=== PATIENT | female | born 1935 | race Caucasian/White ===

== ENCOUNTER 2017-04-15 15:56 | Emergency (ER) | payer MEDICARE ==
[2017-04-15 16:34] VITALS: O2SAT 98
[2017-04-15] MEDS ORDERED: Albuterol-Ipratrop 3 mg / 0.5 (3 ml) UD IH STA (17:17)
--- NOTE | 2017-04-15 18:12 | RAD ---
HISTORY: Cough COMPARISON: Chest x-ray portion of abdominal series performed 10/30/12 TECHNIQUE: Chest PA and lateral FINDINGS: LUNGS: Bibasilar atelectasis. Please note that chest x-ray has limited sensitivity for the detection of pulmonary masses. PLEURA: Trace bilateral pleural effusions versus pleural thickening. No definite pneumothorax . CARDIOVASCULAR: Heart size appears within normal limits. Ectatic aorta containing atherosclerotic calcifications. OSSEOUS STRUCTURES: Osseous demineralization. Degenerative changes of the spine and shoulders. Acromioclavicular arthropathy. VISUALIZED UPPER ABDOMEN: Unremarkable. OTHER FINDINGS: None. IMPRESSION: Bibasilar atelectasis. Small bilateral pleural effusions versus pleural thickening.
--- NOTE | 2017-04-15 18:20 | C.PDOC ---
Time Seen by Provider: 04/15/17 16:47 Chief Complaint (Nursing): Cough, Cold, Congestion History Per: Patient Onset/Duration Of Symptoms: Days (about 1 week) Current Symptoms Are (Timing): Still Present Associated Symptoms: Cough, Sputum Severity: Moderate Additional History Per: Prior Records Past Medical History Reviewed: Historical Data, Nursing Documentation, Vital Signs Vital Signs: Last Vital Signs Temp 98.8 F 04/15/17 16:27 Pulse 112 H 04/15/17 16:27 Resp 20 04/15/17 16:27 BP 153/87 H 04/15/17 16:27 Pulse Ox 98 04/15/17 16:27 - Medical History PMH: HTN, Rheumatoid Arthritis Other PMH: Asbestos lung disease? Surgical History: Tonsillectomy Family History: States: Unknown Family Hx - Social History Hx Tobacco Use: No Hx Alcohol Use: No Hx Substance Use: No - Immunization History Hx Tetanus Toxoid Vaccination: No Hx Influenza Vaccination: No Hx Pneumococcal Vaccination: No Review Of Systems Except As Marked, All Systems Reviewed And Found Negative. Constitutional: Negative for: Fever, Weakness ENT: Negative for: Throat Pain Cardiovascular: Negative for: Chest Pain Respiratory: Positive for: Cough, Sputum. Negative for: Shortness of Breath, Hemoptysis Gastrointestinal: Negative for: Vomiting, Abdominal Pain Musculoskeletal: Negative for: Neck Pain Skin: Negative for: Rash Neurological: Negative for: Weakness, Numbness, Seizures, Altered Mental Status Physical Exam - Physical Exam Appears: Non-toxic, No Acute Distress Skin: Normal Color, Warm, Dry, No Rash Head: Atraumatic, Normacephalic Eye(s): bilateral: PERRL, EOMI Neck: Normal ROM, Supple Cardiovascular: Rhythm Regular Respiratory: No Accessory Muscle Use, Rhonchi Gastrointestinal/Abdominal: Soft, No Tenderness Back: No CVA Tenderness Extremity: Normal ROM, No Pedal Edema, No Calf Tenderness Neurological/Psych: Oriented x3, Normal Speech, Normal Motor, Normal Sensation ED Course And Treatment O2 Sat by Pulse Oximetry: 98 Pulse Ox Interpretation: Normal - Radiology CXR: Viewed By Me, Read By Radiologist CXR Interpretation: Yes: Other (Bibasilar atelectasis. Small bilateral pleural effusions versus pleural thickening.) Progress - Interventions Interventions:: Observation - Medications Administered Inhaled nebulized: Anticholinergic, Beta-2 agonist - Data Reviewed Data Reviewed: Diagnostic imaging, Old records - Patient Status Patient status: Mostly improved - Continuity of Care Discussed patient case with:: Patient, ED Nurse - Patient Plan Patient Plan: Discharge, F/U with PCP, Continue present meds Disposition Counseled Patient/Family Regarding: Studies Performed, Diagnosis, Need For Followup, Rx Given - Disposition Referrals: Vincenzo Laguerre MD [Medical Doctor] - Disposition: HOME/ ROUTINE Disposition Time: 18:21 Condition: IMPROVED Additional Instructions: Follow up with your doctor for further evaluation and treatment. Return to the ER if you develop shortness of breath, chest pain, fever, worsening of symptoms or if you have any other concerns. Prescriptions: Albuterol HFA [Ventolin HFA 90 mcg/actuation (8 g)] 2 puff IH Q4 PRN #1 unit PRN Reason: Cough And Congestion Azithromycin [Zithromax] 1 dose PO DAILY #1 pkt Instructions: Acute Bronchitis (ED) - Clinical Impression Clinical Impression: Bronchitis
[2017-04-15 18:37] VITALS: BP 150/74; PULSE 96; RESP 16; TEMP 98.3
== END 2017-04-15 18:38 | disposition home or self-care (01) ==
LOC: C.ER 15:56
DX: J40 Bronchitis, not specified as acute or chronic (principal)

== ENCOUNTER 2017-09-05 17:37 | Emergency (ER) | payer MEDICARE ==
[2017-09-05 18:01] VITALS: RESP 18
--- NOTE | 2017-09-05 19:06 | C.PDOC ---
History Of Present Illness 81 y/o F presents with drowsiness tonight. Fire department came to patient's home and found patient drowsy and elevated CO reading on monitor. Patient denies any symptoms currently. Denies vision change, sleepiness, chest pain, dyspnea, numbness, weakness. No fire in home. Time Seen by Provider: 09/05/17 18:02 Chief Complaint (Nursing): Dizziness/Lightheaded Past Medical History Vital Signs: Last Vital Signs Temp 98.6 F 09/05/17 17:54 Pulse 124 H 09/05/17 17:54 Resp 18 09/05/17 17:54 BP 175/109 H 09/05/17 17:54 Pulse Ox 96 09/05/17 19:18 - Medical History PMH: HTN, Rheumatoid Arthritis Surgical History: Tonsillectomy Family History: States: Unknown Family Hx - Social History Hx Tobacco Use: No Hx Alcohol Use: No Hx Substance Use: No - Immunization History Hx Tetanus Toxoid Vaccination: No Hx Influenza Vaccination: No Hx Pneumococcal Vaccination: No Review Of Systems Except As Marked, All Systems Reviewed And Found Negative. Constitutional: Negative for: Fever Cardiovascular: Negative for: Chest Pain Respiratory: Negative for: Shortness of Breath Physical Exam - Physical Exam Additional Physical Exam Comments: Constitutional: No acute distress. Head: Normocephalic. Atraumatic. Eyes: PERRL. ENT: Moist mucous membranes. Neck: Supple. Cardiovascular: Regular rate. Radial pulse 2+ bilaterally. Chest: No tenderness. Respiratory: Clear to auscultation bilaterally. GI: Soft. Nontender. Nondistended. Back: No CVA tenderness. Musculoskeletal: No tenderness or swelling of extremities. Skin: No rash. Neurologic: Alert, no focal deficit. Romberg negative. Finger to nose, heel to pope, and rapid alternating movements normal. Oriented x 3. Cranial nerves II- XII intact. Sensation to light touch intact bilaterally. Motor 5/5 x 4. Gait normal. ED Course And Treatment - Laboratory Results Result Diagrams: 09/05/17 18:57 09/05/17 18:57 O2 Sat by Pulse Oximetry: 96 Medical Decision Making Medical Decision Making: CO level positive. Patient feels well, no symptoms. Vitals normal. Will discharge home. RN called patient's home, confirmed safe to be inhabited. Disposition - Disposition Referrals: Vincenzo Laguerre MD [Medical Doctor] - Disposition: HOME/ ROUTINE Disposition Time: 20:14 Condition: STABLE Instructions: Carbon Monoxide Poisoning (ED) Forms: [employer] ([place]ian) - Clinical Impression Clinical Impression: Carbon monoxide exposure - Scribe Statement The provider has reviewed the documentation as recorded by the Scribe Buck Ta All medical record entries made by the Scribe were at my direction and personally dictated by me. I have reviewed the chart and agree that the record accurately reflects my personal performance of the history, physical exam, medical decision making, and the department course for this patient. I have also personally directed, reviewed, and agree with the discharge instructions and disposition.
[2017-09-05 19:12] LABS: BASO # 0.1 K/uL (0.0-0.2); BASO % 0.5 % (0.0-2.0); EOS # 0.1 K/uL (0.0-0.7); EOS % 0.6 % (0.0-4.0); HEMATOCRIT 37.4 % (34.0-47.0); LYMPH % 19.2 % (20.0-40.0); MEAN CELL VOLUME 80.6 fL (81.0-99.0); MEAN CORPUSCULAR HGB CONC 33.5 g/dL (33.0-37.0); MEAN PLATELET VOLUME 9.3 fL (7.2-11.7); MONO # 0.7 K/uL (0.0-0.8); MONO % 6.6 % (0.0-10.0); RED CELL DISTRIBUTION WIDTH 14.4 % (11.5-14.5); WHITE BLOOD COUNT 10.4 K/uL (4.8-10.8)
[2017-09-05 19:23] LABS: BLOOD GAS HEMOGLOBIN 12.6 g/dL (11.7-17.4); CARBOXYHEMOGLOBIN 3.6 % (0.5-1.5); DRAW SITE VENOUS; HHB 33.5 % (0.0-5.0); METHEMOGLOBIN 0.8 % (0.0-3.0); VENOUS BLOOD GAS BASE EXCESS 1.7 mmol/L (0.0-2.0); VENOUS BLOOD GAS PCO2 42 mmHg (40-60); VENOUS BLOOD PH 7.41 (7.32-7.43)
[2017-09-05 19:25] LABS: CHLORIDE 98 mmol/L (98-107)
[2017-09-05 19:26] LABS: POTASSIUM 4.1 mmol/L (3.6-5.2); SODIUM 132 mmol/L (132-148)
[2017-09-05 19:26] LABS: VENOUS BLOOD GAS BASE EXCESS 1.2 mmol/L (0.0-2.0); VENOUS BLOOD GAS PCO2 44 mmHg (40-60); VENOUS BLOOD PH 7.39 (7.32-7.43)
[2017-09-05 19:28] LABS: AST/SGOT 20 U/L (14-36); BILIRUBIN,TOTAL 0.7 mg/dL (0.2-1.3); CARBON DIOXIDE 22 mmol/L (22-30); GFR AFRICAN-AMERICAN 58
[2017-09-05 19:29] LABS: ALB/GLOB RATIO 1.3 (1.0-2.1); ALKALINE PHOSPHATASE 61 U/L (38-126); ALT/SGPT 20 U/L (9-52); BLOOD UREA NITROGEN 26 mg/dL (7-17); CALCIUM 9.2 mg/dl (8.6-10.4); GLUCOSE,RANDOM 119 mg/dL (65-105); TOTAL PROTEIN 6.9 g/dL (6.3-8.3)
[2017-09-05 20:51] VITALS: BP 150/90; PULSE 89; TEMP 98.1; O2SAT 100
--- NOTE | 2017-09-08 21:11 | CARD ---
APPROVED REPORT EKG Measurement Heart [id number] <Conclusion> Normal sinus rhythm Normal ECG
== END 2017-09-05 20:35 | disposition home or self-care (01) ==
LOC: C.ER 17:37
DX: T75.89XA Other specified effects of external causes, initial encounter (principal); X58.XXXA Exposure to other specified factors, initial encounter